=== PATIENT | female | born 1980 | race Caucasian/White ===

== ENCOUNTER 2019-09-25 20:55 | Outpatient (CLI) | payer BC ==
[~2019-09-25] VITALS: Ht 157.5 cm; Wt 73.6 kg
--- NOTE | 2019-09-25 20:30 | NUR ---
Patient ambulatory to unit accompanied by spouse. Patient states she has felt leaking of fluid. Patient states she lost her mucous plug last week but this is more than mucous. Patient states baby is active, denies any vaginal bleeding. Fhr and contraction monitors placed and explained. VS stable. SVE fingertip/50/high, amniotest negative, mucous noted on glove but not active leaking of fluid. Patient resting in bed. Assessment completed.
[2019-09-25 21:00] VITALS: BP 118/80; PULSE 98
[2019-09-25] MEDS ORDERED: BENADRYL50 MG PO (21:08)
[2019-09-25] MEDS ORDERED: PRENATAL TABLET PO (21:08)
[2019-09-25 21:30] VITALS: BP 119/81; PULSE 74
[2019-09-25 22:00] VITALS: BP 128/78; PULSE 89
--- NOTE | 2019-09-25 22:00 | NUR ---
SVE fingertip/50/high. Amniotest negative, small amount of clear mucous noted on glove with SVE. Patient states she still feels like she is leaking and feels in her vagina. Dr. Zamora called for orders. Patient off monitors at 2205. Pad and underwear on and ambulating around room.
--- NOTE | 2019-09-25 22:25 | NUR ---
2225: Patient back in bed resting. Denies any leaking on peripad. FHR and contractions back on. Patient states the contractions are stronger. Per Roles order given Terbutaline 0.25mg SQ at 223 and encouraged patient to continue to drink water. Patient verbalizes understanding.
[2019-09-25 22:30] VITALS: BP 127/80; PULSE 86
[2019-09-25 23:00] VITALS: BP 117/69; PULSE 83
[2019-09-25 23:45] VITALS: BP 121/63; PULSE 86
--- NOTE | 2019-09-25 23:45 | NUR ---
Plan of care and options discussed with patient. Patient would like to go home and return with discharge instructions. Off monitors. Discharge instructions reviewed and patient verbalizes understanding.
== END 2019-09-25 23:55 | disposition home or self-care (01) ==
LOC: LDRO 20:55
DX: O62.9 Abnormality of forces of labor, unspecified (principal); Z3A.35 35 weeks gestation of pregnancy; F17.210 Nicotine dependence, cigarettes, uncomplicated; Z87.59 Personal history of other complications of pregnancy, childbirth and the puerperium
CPT/HCPCS: J3105

== ENCOUNTER 2019-09-27 15:21 | Outpatient (CLI) | payer BC ==
[~2019-09-27] VITALS: Ht 157.5 cm; Wt 73.2 kg
[~2019-09-27 15:21] MED LIST: BENADRYL50 MG PO; PRENATAL TABLET PO
[2019-09-27 15:23] VITALS: BP 111/71; PULSE 83; TEMP 98.5
[2019-09-27] MEDS ORDERED: VISTARIL50 MG PO (15:29)
--- NOTE | 2019-09-27 16:30 | NUR ---
1613- Pt very anxious, nervous about water being broke and not knowing when to come back. Pt requests for this RN to reswab her with amniotrace, Pt encouraged to cough, amniotrace negaive, no color change noted. Discussed labor precautions and when to return to hospital. 1617- EFM and TOCO off. Pt up to bathroom to change into street clothes. 1625- Discharge paperwork given and explained. Questions encouraged. 1630- Pt leaves unit ambulatory with in stable condition.
== END 2019-09-27 16:30 | disposition home or self-care (01) ==
LOC: LDRO 15:21 → LDR 15:23 → LDRO 16:30
DX: O62.9 Abnormality of forces of labor, unspecified (principal); O99.333 Smoking (tobacco) complicating pregnancy, third trimester; Z87.59 Personal history of other complications of pregnancy, childbirth and the puerperium; Z3A.35 35 weeks gestation of pregnancy
CPT/HCPCS: OP

== ENCOUNTER 2019-09-29 15:55 | Inpatient (IN) | payer BC ==
[2019-09-29] VITALS (16 sets, daily range): BP systolic 94–132; BP diastolic 50–90; PULSE 58–115; TEMP 98.2–99
[~2019-09-29 15:55] MED LIST changes: +VISTARIL50 MG PO
--- NOTE | 2019-09-29 16:00 | NUR ---
Pt here with c/o decreased movement and contractions. 36 weeks, G5L2. Pt to EFM, explained. SVE: 50/-2. Assessment complete. Pt with cholestatis of and has repeat c/section next week at 37 weeks. Pt states the baby hasn't been moving as much since the contractions have gotten stronger today. Dr Kasper here, orders to continue to monitor at this time. FHR reactive. Irregular contractions noted every 2-7 minutes. at bedside.
--- NOTE | 2019-09-29 17:00 | NUR ---
Pt crying in bed, c/o contraction pain is way worse and constant. Dr Kasper here and notified, is monitoring. Pt encouraged to po hdyrate at this time. 172:Visatril ordered, see emar. SVE: /-2. 1739:Dr Kasper here and updated. Orders received to start IV and give LR bolus. 1744:Iv started x 1 attempt, LR infusing without difficulty. Will continue to monitor.
--- NOTE | 2019-09-29 18:20 | NUR ---
REPORT TAKEN FROM Francis FROST RN. PT RESTING IN BED WITH SUPPORT PERSON AT SIDE. IVF BOLUS CONTINUES TO INFUSE PER GRAVITY DRIP.
--- NOTE | 2019-09-29 19:00 | NUR ---
DR. BOWLING AT BEDSIDE FOR SVE WITH CHANGE NOTED. DISCUSS TAKING PATIENT FOR REPEAT SECTION. CARE ASSUMED BY Veena BALL RN. PT OFF MONITOR TO USE BR. Darin DIAS CRNA AT BEDSIDE FOR HX AND ASSESSMENT FOR C/S. CHARGE AND NURSERY NOTIFIED OF CS.
[2019-09-30 04:30] VITALS: BP 109/66; PULSE 74; TEMP 98.1
[2019-09-30 07:27] LABS: BASO # 0.1 (0.0-0.2); BASO % 0.4 % (0.0-2.0); EOS # 0.2 (0.0-0.7); EOS % 1.5 % (0-4.0); GRAN # 10.7 (1.4-6.5); HEMOGLOBIN 10.2 g/dl (12.5-16.0); LYMPH % 14.2 % (20.0-51.0); MEAN CELL VOLUME 94 fl (80.0-100.0); MEAN CORPUSCULAR HEMOGLOBIN 32 pg (27.0-31.0); MEAN CORPUSCULAR HGB CONC 34 g/dl (33.0-37.0); MEAN PLATELET VOLUME 11.5 fl (7.4-10.4); MONO # 1.1 (0.1-0.6); MONO % 7.9 % (1.7-9.3); PLATELET COUNT 208 K/mm3 (130-400)
[2019-09-30 07:42] LABS: ALBUMIN 2.6 gm/dL (3.5-5.0); BILIRUBIN,TOTAL 0.8 mg/dL (0.0-1.0); CALCIUM 8.2 mg/dL (8.4-10.2); CREATININE, serum 0.52 (0.52-1.25); POTASSIUM 3.4 mmol/L (3.4-5.0); TOTAL PROTEIN 5.5 gm/dL (6.4-8.2)
[2019-09-30 07:46] LABS: HEMATOCRIT 30.2 % (37.0-47.0)
[2019-09-30 08:07] VITALS: BP 111/71; PULSE 62; TEMP 97.8
[2019-09-30 15:35] VITALS: BP 114/85; PULSE 85; TEMP 98.4
[2019-09-30 19:30] VITALS: BP 101/63; PULSE 64; TEMP 99
[2019-10-01 07:20] VITALS: BP 113/72; PULSE 68; TEMP 97
[2019-10-01] MEDS ORDERED: IBU600 MG PO (10:59)
[2019-10-01] MEDS ORDERED: LEXAPRO 10MG10 MG PO (11:00)
[2019-10-01] MEDS ORDERED: PERCOCET 325 MG1 TA3 PO (11:00)
[2019-10-01 12:08] LABS: ALBUMIN 3.1 gm/dL (3.5-5.0); BILIRUBIN,TOTAL 0.7 mg/dL (0.0-1.0); CREATININE, serum 0.58 (0.52-1.25); POTASSIUM 3.9 mmol/L (3.4-5.0); TOTAL PROTEIN 6.3 gm/dL (6.4-8.2)
--- NOTE | 2019-10-01 15:34 | NUR ---
1245 DISCHARGE INSTRUCTIONS REVIEWED WITH PATIENT. PATIENT VERBALIZED UNDERSTANDING. WILL NOTIFY THIS RN WHEN READY TO LEAVE. 1255 ALL PERSONAL BELONGINGS GATHERED FROM PATIENT ROOM. PATIENT LEFT AMBULATORY AND IN NO APPARENT DISTRESS. PATIENT ACCOMPANIED BY SPOUSE AND CONSULAR OFFICER.
== END 2019-10-01 12:55 | disposition home or self-care (01) | DRG 786 ==
LOC: LDRO 15:55 → LDR 15:56 → LDRO 19:20 → LDR 19:21 → OB 22:00
PROVIDERS: Student in an Organized Health Care Education/Training Program; ADMIT Obstetrics & Gynecology
PROC: 10D00Z1 Extraction of Products of Conception, Low, Open Approach (ICD-10-PCS; principal; 2019-09-29)
DX: O60.14X0 Preterm labor third trimester with preterm delivery third trimester, not applicable or unspecified (principal); K83.1 Obstruction of bile duct; O26.62 Liver and biliary tract disorders in childbirth; Z37.0 Single live birth; O34.211 Maternal care for low transverse scar from previous cesarean delivery; O99.334 Smoking (tobacco) complicating childbirth; F17.210 Nicotine dependence, cigarettes, uncomplicated; O34.03 Maternal care for unspecified congenital malformation of uterus, third trimester; Q51.4 Unicornate uterus; O99.344 Other mental disorders complicating childbirth; F41.9 Anxiety disorder, unspecified; O77.0 Labor and delivery complicated by meconium in amniotic fluid; O34.83 Maternal care for other abnormalities of pelvic organs, third trimester; N83.201 Unspecified ovarian cyst, right side; Z3A.35 35 weeks gestation of pregnancy
CPT/HCPCS: J0690; J1200; J1885; J2175; J2250; J2270; J2370; J2405; J2590; J3010; J7120

== ENCOUNTER 2020-04-24 15:17 | Emergency (ER) | payer SELFPAY ==
[~2020-04-24] VITALS: Ht 157.5 cm; Wt 40.9 kg
[~2020-04-24 15:17] MED LIST changes: +IBU600 MG PO; +LEXAPRO 10MG10 MG PO; +PERCOCET 325 MG1 TA3 PO
[2020-04-24 16:00] LABS: BASO # 0.1 (0.0-0.2); BASO % 0.7 % (0.0-2.0); EOS # 0.4 (0.0-0.7); EOS % 5.6 % (0-4.0); GRAN # 3.6 (1.4-6.5); GRAN % 52.9 % (42.2-75.2); HEMOGLOBIN 11.4 g/dl (12.5-16.0); LYMPH # 2.1 (1.2-3.4); LYMPH % 31.8 % (20.0-51.0); MEAN CELL VOLUME 97 fl (80.0-100.0); MEAN CORPUSCULAR HEMOGLOBIN 30 pg (27.0-31.0); MEAN CORPUSCULAR HGB CONC 31 g/dl (33.0-37.0); MEAN PLATELET VOLUME 10.8 fl (7.4-10.4); MONO # 0.6 (0.1-0.6); MONO % 8.6 % (1.7-9.3); PLATELET COUNT 228 K/mm3 (130-400); RED BLOOD COUNT 3.77 M/mm3 (4.10-5.30); REDCELL DISTRIBUTION WIDTH-CV 13.9 % (11.5-14.5)
[2020-04-24 16:01] LABS: HEMATOCRIT 36.4 % (37.0-47.0)
[2020-04-24 16:01] LABS: COLLECTION METHOD CLEAN CATCH
[2020-04-24] MEDS ORDERED: EFFEXOR-XR150 MG PO (16:03)
[2020-04-24] MEDS ORDERED: AMBIEN 10MG10 MG PO (16:03)
[2020-04-24] MEDS ORDERED: ATIVAN 1MG T1 MG/TAB PO (16:04)
[2020-04-24 16:06] LABS: PH 7 (5-8); SQUAMOUS EPITHELIAL None Seen /hpf; URINE APPEARANCE Clear; URINE BACTERIA None Seen /hpf; URINE BILIRUBIN Negative (NEGATIVE); URINE BLOOD Negative (NEGATIVE); URINE COLOR Colorless; URINE GLUCOSE Negative (NEGATIVE); URINE KETONE Negative (NEGATIVE); URINE LEUKOCYTE ESTERASE Negative (NEGATIVE); URINE NITRATE Negative (NEGATIVE); URINE PROTEIN(semi-quant) Negative (NEGATIVE); URINE RBC None Seen /hpf; URINE UROBILINOGEN Negative (NEGATIVE)
[2020-04-24 16:30] LABS: ALANINE AMINOTRANSFERASE 147 U/L (4-34); ALBUMIN 3.5 gm/dL (3.5-5.0); ALKALINE PHOSPHATASE 67 U/L (50-136); ANION GAP 4 mmol/L (7-16); AST,SGOT 62 U/L (15-37); BILIRUBIN,TOTAL 0.2 mg/dL (0.0-1.0); BLOOD UREA NITROGEN 15 mg/dL (7-17); CALCIUM 9.1 mg/dL (8.4-10.2); CARBON DIOXIDE 34 mmol/L (22-30); CHLORIDE 100 mmol/L (98-107); CREATININE, serum 0.64 (0.52-1.25); GLUCOSE 73 mg/dL (74-106); MAGNESIUM 2.2 mg/dL (1.6-2.3); POTASSIUM 4.1 mmol/L (3.4-5.0); SODIUM 138 mmol/L (137-145); TOTAL PROTEIN 5.9 gm/dL (6.4-8.2)
[2020-04-24 16:37] LABS: C-REACTIVE PROTEIN < 0.5 mg/dL (0.0-0.9)
[2020-04-24] MEDS ORDERED: ADDERALL XR30 MG PO (16:44)
[2020-04-24] MEDS ORDERED: CONCERTA36 MG PO (16:45)
[2020-04-24] MEDS ORDERED: MINIPRESS 5M5 MG/CAP PO (16:46)
[2020-04-24 16:55] LABS: CREATINE KINASE 29 U/L (30-135)
[2020-04-24 17:00] LABS: ACETAMINOPHEN < 10 ug/mL (10-30); ALCOHOL(ethanol),MEDICAL < 10 mg/dL; SALICYLATE < 1.0 mg/dL
[2020-04-24 17:15] LABS: TRICYCLIC ANTIDEPRESS URINE POSITIVE
[2020-04-24 20:36] VITALS: BP 106/68; PULSE 95; TEMP 98.4
== END 2020-04-24 21:00 | disposition home or self-care (01) ==
LOC: COL.ER 15:17
PROVIDERS: Nurse Practitioner
DX: R63.0 Anorexia (principal); F32.9 Major depressive disorder, single episode, unspecified; F17.200 Nicotine dependence, unspecified, uncomplicated; Z32.02 Encounter for pregnancy test, result negative
CPT/HCPCS: J7030

== ENCOUNTER 2020-05-20 19:38 | Emergency (ER) | payer SELFPAY ==
[~2020-05-20 19:38] MED LIST changes: +ADDERALL XR30 MG PO; +AMBIEN 10MG10 MG PO; +ATIVAN 1MG T1 MG/TAB PO; +CONCERTA36 MG PO; +EFFEXOR-XR150 MG PO; +MINIPRESS 5M5 MG/CAP PO
[2020-05-20 20:03] VITALS: BP 106/74; PULSE 106
[2020-05-20] MEDS ORDERED: SEROQUEL 2525 MG/TAB PO (22:59)
== END 2020-05-20 20:15 | disposition left against medical advice (07) ==
LOC: COL.ER 19:38
DX: R63.0 Anorexia (principal); F32.9 Major depressive disorder, single episode, unspecified; F10.129 Alcohol abuse with intoxication, unspecified

== ENCOUNTER 2020-05-20 20:42 | Emergency (ER) | payer SELFPAY ==
[~2020-05-20] VITALS: Ht 157.5 cm; Wt 45.5 kg
[2020-05-20 22:03] VITALS: BP 96/61; PULSE 111; TEMP 98
[2020-05-20 22:33] LABS: COLLECTION METHOD CLEAN CATCH
[2020-05-20 22:38] LABS: BASO # 0.1 (0.0-0.2); BASO % 0.8 % (0.0-2.0); EOS # 0.3 (0.0-0.7); EOS % 4.4 % (0-4.0); GRAN # 4.2 (1.4-6.5); GRAN % 54.3 % (42.2-75.2); HEMATOCRIT 41.8 % (37.0-47.0); HEMOGLOBIN 13.6 g/dl (12.5-16.0); LYMPH # 2.8 (1.2-3.4); MEAN CELL VOLUME 94 fl (80.0-100.0); MEAN CORPUSCULAR HEMOGLOBIN 31 pg (27.0-31.0); MEAN CORPUSCULAR HGB CONC 33 g/dl (33.0-37.0); MEAN PLATELET VOLUME 10.6 fl (7.4-10.4); MONO # 0.3 (0.1-0.6); MONO % 4.2 % (1.7-9.3); PLATELET COUNT 249 K/mm3 (130-400); RED BLOOD COUNT 4.45 M/mm3 (4.10-5.30); REDCELL DISTRIBUTION WIDTH-CV 13.6 % (11.5-14.5)
[2020-05-20 22:41] LABS: MUCOUS Present /lpf; PH 5 (5-8); URINE APPEARANCE Hazy; URINE BACTERIA Rare /hpf; URINE BILIRUBIN Negative (NEGATIVE); URINE BLOOD Negative (NEGATIVE); URINE COLOR Yellow; URINE GLUCOSE Negative (NEGATIVE); URINE KETONE Negative (NEGATIVE); URINE LEUKOCYTE ESTERASE Negative (NEGATIVE); URINE NITRATE Negative (NEGATIVE); URINE PROTEIN(semi-quant) Negative (NEGATIVE); URINE RBC 0-2 /hpf; URINE UROBILINOGEN Negative (NEGATIVE)
[2020-05-20 22:45] LABS: TRICYCLIC ANTIDEPRESS URINE POSITIVE
[2020-05-20 22:50] LABS: ALANINE AMINOTRANSFERASE 26 U/L (4-34); ALBUMIN 4.5 gm/dL (3.5-5.0); ALCOHOL(ethanol),MEDICAL 143 mg/dL; ALKALINE PHOSPHATASE 64 U/L (50-136); ANION GAP 7 mmol/L (7-16); AST,SGOT 39 U/L (15-37); BILIRUBIN,TOTAL 0.2 mg/dL (0.0-1.0); BLOOD UREA NITROGEN 14 mg/dL (7-17); CALCIUM 9.4 mg/dL (8.4-10.2); CARBON DIOXIDE 30 mmol/L (22-30); CHLORIDE 106 mmol/L (98-107); GLUCOSE 80 mg/dL (74-106); POTASSIUM 4.3 mmol/L (3.4-5.0); SODIUM 144 mmol/L (137-145); TOTAL PROTEIN 7.2 gm/dL (6.4-8.2)
[2020-05-20 22:52] LABS: ACETAMINOPHEN < 10 ug/mL (10-30); SALICYLATE < 1.0 mg/dL
[2020-05-20] MEDS ORDERED: SEROQUEL 2525 MG/TAB PO (22:59)
== END 2020-05-20 23:17 | disposition left against medical advice (07) ==
LOC: COL.ER 20:42
PROVIDERS: Nurse Practitioner
DX: F41.9 Anxiety disorder, unspecified (principal); F32.9 Major depressive disorder, single episode, unspecified; R63.0 Anorexia; F17.210 Nicotine dependence, cigarettes, uncomplicated

== ENCOUNTER → 2020-05-27 | Outpatient (CLI) | payer OTHER ==
[~2020-05-27] MED LIST changes: +SEROQUEL 2525 MG/TAB PO
[2020-05-27 12:52] LABS: COLLECTION METHOD CLEAN CATCH
[2020-05-27 12:56] LABS: BASO # 0.1 (0.0-0.2); BASO % 1.2 % (0.0-2.0); EOS # 0.2 (0.0-0.7); EOS % 3.9 % (0-4.0); GRAN # 1.6 (1.4-6.5); GRAN % 39.7 % (42.2-75.2); HEMOGLOBIN 14.3 g/dl (12.5-16.0); LYMPH % 49.1 % (20.0-51.0); MEAN CELL VOLUME 91 fl (80.0-100.0); MEAN CORPUSCULAR HEMOGLOBIN 31 pg (27.0-31.0); MEAN CORPUSCULAR HGB CONC 34 g/dl (33.0-37.0); MEAN PLATELET VOLUME 10.5 fl (7.4-10.4); MONO # 0.2 (0.1-0.6); MONO % 5.9 % (1.7-9.3); PLATELET COUNT 244 K/mm3 (130-400); RED BLOOD COUNT 4.62 M/mm3 (4.10-5.30); REDCELL DISTRIBUTION WIDTH-CV 13.3 % (11.5-14.5)
[2020-05-27 13:00] LABS: MUCOUS Present /lpf; PH 5 (5-8); URINE APPEARANCE Hazy; URINE BACTERIA None Seen /hpf; URINE BILIRUBIN Negative (NEGATIVE); URINE BLOOD Negative (NEGATIVE); URINE COLOR Yellow; URINE GLUCOSE Negative (NEGATIVE); URINE KETONE Negative (NEGATIVE); URINE LEUKOCYTE ESTERASE Negative (NEGATIVE); URINE NITRATE Negative (NEGATIVE); URINE PROTEIN(semi-quant) Negative (NEGATIVE); URINE RBC 0-2 /hpf; URINE UROBILINOGEN Negative (NEGATIVE); URINE WBC 0-2 /hpf
[2020-05-27 13:10] LABS: ALBUMIN 4.7 gm/dL (3.5-5.0); BILIRUBIN,TOTAL 0.6 mg/dL (0.0-1.0); CALCIUM 9.7 mg/dL (8.4-10.2); CREATININE, serum 0.89 (0.52-1.25); PHOSPHOROUS 3.7 mg/dL (2.5-4.5); POTASSIUM 3.9 mmol/L (3.4-5.0); TOTAL PROTEIN 7.4 gm/dL (6.4-8.2)
== END ==
LOC: COL.LAB 11:41
DX: F41.1 Generalized anxiety disorder (principal); F33.1 Major depressive disorder, recurrent, moderate; F50.01 Anorexia nervosa, restricting type; Z79.899 Other long term (current) drug therapy

== ENCOUNTER 2020-09-28 16:10 | Emergency (ER) | payer OTHER ==
[~2020-09-28] VITALS: Ht 160 cm; Wt 62.7 kg
[2020-09-28 18:57] LABS: BASO # 0.1 (0.0-0.2); BASO % 0.6 % (0.0-2.0); EOS # 0.5 (0.0-0.7); EOS % 5.2 % (0-4.0); GRAN # 6.6 (1.4-6.5); GRAN % 65.9 % (42.2-75.2); HEMOGLOBIN 11.6 g/dl (12.5-16.0); LYMPH # 2.1 (1.2-3.4); LYMPH % 21.2 % (20.0-51.0); MEAN CELL VOLUME 95 fl (80.0-100.0); MEAN CORPUSCULAR HEMOGLOBIN 30 pg (27.0-31.0); MEAN CORPUSCULAR HGB CONC 32 g/dl (33.0-37.0); MEAN PLATELET VOLUME 10.2 fl (7.4-10.4); MONO # 0.7 (0.1-0.6); MONO % 6.7 % (1.7-9.3); PLATELET COUNT 229 K/mm3 (130-400); RED BLOOD COUNT 3.84 M/mm3 (4.10-5.30); REDCELL DISTRIBUTION WIDTH-CV 12.9 % (11.5-14.5)
[2020-09-28 18:59] LABS: HEMATOCRIT 36.5 % (37.0-47.0)
[2020-09-28 19:02] LABS: COLLECTION METHOD CLEAN CATCH
[2020-09-28 19:07] LABS: ALANINE AMINOTRANSFERASE 16 U/L (4-34); ALBUMIN 3.4 gm/dL (3.5-5.0); ALKALINE PHOSPHATASE 55 U/L (50-136); ANION GAP -2 mmol/L (7-16); AST,SGOT 20 U/L (15-37); BILIRUBIN,TOTAL < 0.1 mg/dL (0.0-1.0); BLOOD UREA NITROGEN 9 mg/dL (7-17); CALCIUM 9.2 mg/dL (8.4-10.2); CARBON DIOXIDE 28 mmol/L (22-30); CHLORIDE 112 mmol/L (98-107); CREATININE, serum 0.68 (0.52-1.25); GLUCOSE 79 mg/dL (74-106); POTASSIUM 3.9 mmol/L (3.4-5.0); SODIUM 138 mmol/L (137-145); TOTAL PROTEIN 6.1 gm/dL (6.4-8.2)
[2020-09-28 19:08] LABS: PH 5 (5-8); SQUAMOUS EPITHELIAL 0-2 /hpf; URINE APPEARANCE Clear; URINE BACTERIA Rare /hpf; URINE BILIRUBIN Negative (NEGATIVE); URINE BLOOD Negative (NEGATIVE); URINE COLOR Straw; URINE GLUCOSE Negative (NEGATIVE); URINE KETONE Negative (NEGATIVE); URINE LEUKOCYTE ESTERASE Negative (NEGATIVE); URINE NITRATE Negative (NEGATIVE); URINE PROTEIN(semi-quant) Negative (NEGATIVE); URINE RBC None Seen /hpf; URINE UROBILINOGEN Negative (NEGATIVE)
[2020-09-28 19:08] LABS: ACETAMINOPHEN < 10 ug/mL (10-30); ALCOHOL(ethanol),MEDICAL < 10 mg/dL; SALICYLATE < 1.0 mg/dL
[2020-09-28 19:33] LABS: TRICYCLIC ANTIDEPRESS URINE NEGATIVE
[2020-09-29 05:30] VITALS: BP 120/62; PULSE 68
== END 2020-09-29 05:15 ==
LOC: COL.ER 16:10
PROVIDERS: Nurse Practitioner
DX: F41.9 Anxiety disorder, unspecified (principal); F32.9 Major depressive disorder, single episode, unspecified; R45.851 Suicidal ideations; Z20.822 Contact with and (suspected) exposure to COVID-19; Z79.899 Other long term (current) drug therapy